=== PATIENT | female | born 1975 | race Caucasian/White ===

== ENCOUNTER 2019-02-18 10:30 | Emergency (ER) | payer MEDICAID ==
[~2019-02-18] VITALS: Ht 162.6 cm; Wt 99.8 kg
[2019-02-18] MEDS ORDERED: IPRATRPIUM/ALBUTEROL 0.5/2.5MG 3 ML NEBU. NEB ONE (10:45)
[2019-02-18] MEDS ORDERED: AMOXICILLIN/K CLAV 875/125MG TABLET. PO ONE (10:45)
[2019-02-18] MEDS ORDERED: DEXAMETHASONE 4 MG TABLET PO ONE (10:45)
[2019-02-18 10:48] VITALS: BP 136/68
[2019-02-18] MEDS ORDERED: BUPIVACAINE-EPI 0.5%-1:200000 MPF 30 ML VIAL. INJ ONE (11:15)
--- NOTE | 2019-02-18 11:29 | PHYS DOC ---
Past Medical History Past Medical History: Anxiety, Hypothyroid, Schizophrenia Past Surgical History: No Surgical History Smoking: Cigarettes Alcohol Use: None Drug Use: None Adult General Chief Complaint Chief Complaint: DENTAL PROBLEM HPI HPI Patient is a 43 year old female who presents with dental pain. Pt reports having lower right tooth pain started 3 days ago. Yesterday, pt began to have sore throat. The tooth pain is constant. She rates the pain as 10/10 (10=worst). She has been prescribed Clindamycin 2 days ago by a provider at her custodial. Denies any F/C, N/V. Also reports some increased wheezing. Review of Systems Review of Systems Constitutional: Denies fever or chills Eyes: Denies redness or eye pain HENT: Denies nasal congestion. Positive sore throat and toothache Respiratory: Denies cough; reports wheezing Cardiovascular: Denies chest pain or palpitations GI: Denies abdominal pain, nausea, or vomiting : Denies dysuria or hematuria Musculoskeletal: Denies back pain or joint pain Integument: Denies rash or skin lesions Neurologic: Denies headache, focal weakness or sensory changes Complete systems were reviewed and found to be within normal limits, except as documented in this note. Current Medications Current Medications Current Medications Medications (Trade) Dose Ordered Sig/Sofi Start Time Stop Time Status Last Admin Dose Admin Albuterol/ Ipratropium (Duoneb) 3 ml 1X ONCE 02/18/19 10:45 02/18/19 10:57 DC 02/18/19 11:00 3 ML Amoxicillin/ Clavulanate Potassium (Augmentin 875/ 125mg) 1 tab 1X ONCE 02/18/19 10:45 02/18/19 11:04 DC Bupivacaine HCl/ Epinephrine Bitart (Sensorcain-Epi 0.5%-1:451287 Mpf) 30 ml 1X ONCE 02/18/19 11:15 02/18/19 11:16 DC 02/18/19 11:53 30 ML Dexamethasone (Decadron) 10 mg 1X ONCE 02/18/19 10:45 02/18/19 10:57 DC Allergies Allergies Allergies Coded Allergies Type Severity Reaction Last Updated Verified Penicillins Allergy Mild HIVES 02/18/19 Yes Physical Exam Physical Exam Constitutional: Well developed, well nourished, no acute distress, non-toxic appearance HENT: Normocephalic, atraumatic, mild erythematous oropharynx, dental caries to at right 3rd mandibular molar with erythematous gum, no fluctuance drainable area Eyes: Conjunctiva normal, no discharge Neck: Normal range of motion, LAD, supple Cardiovascular: Heart rate normal, regular rhythm Lungs & Thorax: Bilateral breath sounds equal with wheezing b/l Skin: Warm, dry, no erythema, no rash Back: No tenderness, no CVA tenderness Extremities: No tenderness, ROM intact, no edema Neurologic: Alert and oriented X 3, no focal deficits noted Psychologic: Affect normal, judgement normal Current Patient Data Vital Signs Vital Signs Date Time Temp Pulse Resp B/P (MAP) Pulse Ox O2 Delivery O2 Flow Rate FiO2 02/18/19 11:01 92 Room Air 02/18/19 10:48 97.9 69 18 136/68 (90) 97.9 EKG EKG [] Radiology/Procedures Radiology/Procedures [] Course & Med Decision Making Course & Med Decision Making 43 yo female presents for tooth pain. DDX: tooth fracture-infection and pharyngitis. Dental nerve block to the inferior alveolar performed for symptomatic treatment. Given that Pt has home antibiotics, no need to prescribe more antibiotics at this point. Due to her COPD from smoking, pt also received DuoNeb x1 in the ED. Patient stable for discharge with outpatient follow-up with PCP and Dentist. Discussed findings and plan with patient, who acknowledges understanding and agreement. Dragon Disclaimer Dragon Disclaimer This electronic medical record was generated, in whole or in part, using a voice recognition dictation system. Additional Procedures Progress Dental block: Verbal consent obtained. Time out performed. Hand hygiene utilized. Right inferior alveolar dental block performed via a 25-gauge hypodermic needle with (3) mL's of Bupivacaine 0.5% with epinephrine. Patient tolerated procedure well and without difficulty. Reports resolution of pain. Departure Departure Impression: Primary Impression: Dental caries Additional Impressions: Dentalgia Bronchitis Disposition: 01 HOME, SELF-CARE Condition: STABLE Referrals: KASI OCASIO MD (PCP) Patient Instructions: Bronchitis, [id number], Dental Caries-Brief, Toothache- Brief Additional Instructions: Please continue to take your previous prescribed antibiotics to completion Scripts Hydrocodone/Apap 5-325 (NORCO 5-325 TABLET) 1 Each Tablet 0.5-1 TAB PO PRN Q6HRS PRN for PAIN, #10 TAB 0 Refills Prov: MAYEN,ESTHER R DO 02/18/19 Chlorhexidine Gluconate (PERIDEX) 15 Ml Mouthwash 15 ML PO BID, #473 ML 0 Refills Prov: ESTHER MAYEN DO 02/18/19 Albuterol Sulfate (Proair Hfa) 8.5 Gm Hfa.aer.ad 1 PUFF INH PRN Q6HRS PRN for WHEEZING, #1 INHALER Prov: ESTHER MAYEN DO 02/18/19 Problem Qualifiers ESTHER MAYEN DO Feb 18, 2019 11:29
[2019-02-18] MEDS ORDERED: CHLO15MO2 PO (11:54)
[2019-02-18] MEDS ORDERED: ALBU2.5V8 INH (11:54)
[2019-02-18] MEDS ORDERED: HYDR-3164 PO (11:57)
== END 2019-02-18 12:10 | disposition home or self-care (01) ==
LOC: ER 10:30
DX: J40 Bronchitis, not specified as acute or chronic (principal); K02.9 Dental caries, unspecified; K08.89 Other specified disorders of teeth and supporting structures; E03.9 Hypothyroidism, unspecified; F20.9 Schizophrenia, unspecified; F17.210 Nicotine dependence, cigarettes, uncomplicated; Z88.0 Allergy status to penicillin
CPT/HCPCS: 64400; 94640; 99284; J3490; J7620; J8540

== ENCOUNTER 2020-11-03 00:34 | Emergency (ER) | payer MEDICAID ==
[~2020-11-03] VITALS: Ht 162.6 cm; Wt 100.0 kg
[~2020-11-03 00:34] MED LIST: ACET325T21 PO; ALBU2.5V8 INH; ATOR80TA72 PO; CHLO15MO2 PO; CYAN500L4 SL; DIVA500T4 PO; GABA600T7 PO; HYDR-3164 PO; IBUP-1027 PO; INSU100V13 SQ; INSU100V6 SQ; LEVO112T50 PO; LOPE2TAB27 PO; LURA20TA PO; MAG-115 PO; METF10007 PO; NICO2GUM5 BC; OMEG10005 PO; POLY17PO29 PO; QUET400T PO; RISP0.5T24 PO; RISP50DI IM; TRAM100C3 PO; VITA1TAB19 PO
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
--- NOTE | 2020-11-03 02:53 | RAD ---
INDICATION: Reason: head injury / Spl. Instructions: / History: COMPARISON: None. TECHNIQUE: Axial CT images obtained through the head and cervical spine without intravenous contrast. Coronal a nd sagittal reformats processed of cervical spine. One or more of the following individualized dose reduction techniques were utilized for this examinat ion: 1. Automated exposure control; 2. Adjustment of the mA and/or kV according to patient size; 3 . Use of iterative reconstruction technique. FINDINGS: Head: No intracranial hemorrhage. No midline shift. Basal cisterns patents. Mild prominence of the subdural space frontally which could be secondary to asymmetric volume loss. There are some mild scattered foci of low density of white matter. Nonspecific but can be from small vessel ischemic disease. No acute osseous abnormality. Orbits and paranasal sinuses unremarkable. Cervical: No definite acute fracture. No dislocation. No evidence of perivertebral hematoma. There is some mild degenerative changes of the cervical spine. IMPRESSION: * No acute intracranial hemorrhage. * No acute fracture of cervical spine. Degenerative changes are seen. Electronically signed by: Ortiz Peck MD (11/03/2020 2:51 AM) [id number]
[2020-11-03 05:38] VITALS: BP 158/93
== END 2020-11-03 06:30 | disposition home or self-care (01) ==
LOC: ER 00:34
DX: S00.83XA Contusion of other part of head, initial encounter (principal); G47.00 Insomnia, unspecified; Z88.0 Allergy status to penicillin; W18.09XA Striking against other object with subsequent fall, initial encounter; Y93.89 Activity, other specified; Y92.89 Other specified places as the place of occurrence of the external cause; Y99.8 Other external cause status
CPT/HCPCS: 70450; 72125; 99285